=== PATIENT | female | born 1940 | race Caucasian/White ===

== ENCOUNTER → 2023-04-09 | Day surgery (SDC) | payer MEDICARE ==
[~2023-04-09] MED LIST: ATENOLOL50 MG PO; DEXAMETHASONE SOD PHOS INJ 4 MG/ML SDV ONE; LACTATED RINGER'S 1,000 ML ONE; LEVOTHYROXINE50 MCG PO; LIDOCAINE HCL 2% LOCAL INJ 5 ML SDV VIAL INJ ONE; OFLOXACIN 0.3% (OTIC SOL) 5 ML BTL ONE; ONDANSETRON HCL INJ 2MG/ML 2ML 2 MG/ML VIAL ONE; PROPOFOL IV EMULSION 10 MG/ML 20 ML VIAL ONE; SEVOFLURANE INHAL SOLN 250 ML PEN BTL ONE; SIMVASTATIN40 MG PO
[2023-04-09 10:05] VITALS: BP 137/68; PULSE 70; RESP 17; O2SAT 99
== END | disposition home or self-care (01) ==
LOC: OR 06:38
PROVIDERS: ATTEND Otolaryngology Otolaryngology/Facial Plastic Surgery
DX: H65.22 Chronic serous otitis media, left ear (principal); H69.83 Other specified disorders of Eustachian tube, bilateral; H90.6 Mixed conductive and sensorineural hearing loss, bilateral; J34.3 Hypertrophy of nasal turbinates; I10 Essential (primary) hypertension; E78.5 Hyperlipidemia, unspecified; E03.9 Hypothyroidism, unspecified; Z88.6 Allergy status to analgesic agent; Z79.899 Other long term (current) drug therapy; Z86.19 Personal history of other infectious and parasitic diseases
CPT/HCPCS: 69436; 71046; 93005; J1100; J2001; J2405; J2704; J7121